=== PATIENT | female | born 1975 | race Caucasian/White ===

== ENCOUNTER 2017-10-03 13:00 | Outpatient (CLI) | payer OTHER | END 2017-10-03 13:02 | disposition home or self-care (01) | LOC: MAMO-SONO 13:00 | DX: N60.29 Fibroadenosis of unspecified breast (principal); Z12.31 Encounter for screening mammogram for malignant neoplasm of breast ==

== ENCOUNTER 2018-12-11 15:57 | Outpatient (CLI) | payer OTHER | END 2018-12-11 16:00 | disposition home or self-care (01) | LOC: LAB 15:57 | DX: E04.1 Nontoxic single thyroid nodule (principal); E78.00 Pure hypercholesterolemia, unspecified; E55.0 Rickets, active; N92.1 Excessive and frequent menstruation with irregular cycle ==

== ENCOUNTER → 2018-12-11 | Outpatient (CLI) | payer OTHER | END | disposition home or self-care (01) | LOC: MAMO-SONO 08:15 | DX: Z12.31 Encounter for screening mammogram for malignant neoplasm of breast (principal) ==

== ENCOUNTER 2019-02-27 09:46 | Outpatient (CLI) | payer OTHER ==
[~2019-02-27] VITALS: Ht 157.5 cm; Wt 69.4 kg
== END 2019-02-27 10:00 | disposition home or self-care (01) ==
LOC: OFIC 805 09:46
DX: J32.8 Other chronic sinusitis (principal); H74.8X3 Other specified disorders of middle ear and mastoid, bilateral; R09.81 Nasal congestion

== ENCOUNTER 2019-03-13 09:42 | Outpatient (CLI) | payer OTHER ==
[~2019-03-13] VITALS: Ht 152.4 cm; Wt 68.5 kg
== END 2019-03-13 10:00 | disposition home or self-care (01) ==
LOC: OFIC 805 09:42
DX: J32.8 Other chronic sinusitis (principal); H74.8X3 Other specified disorders of middle ear and mastoid, bilateral; R09.81 Nasal congestion

== ENCOUNTER 2019-04-30 07:28 | Outpatient (CLI) | payer OTHER | END 2019-04-30 07:39 | disposition home or self-care (01) | LOC: NUCLEAR 07:28 | DX: K80.20 Calculus of gallbladder without cholecystitis without obstruction (principal) | CPT/HCPCS: 78227; A9537 ==

== ENCOUNTER 2019-06-05 04:53 | Day surgery (SDC) | payer OTHER ==
[~2019-06-05 04:53] MED LIST: FOLGARD TABLET1 EACH PO; GLYCOTROL CAPS1 EACH PO
== END 2019-06-05 13:45 | disposition home or self-care (01) ==
LOC: CIR.AMB 04:53
DX: K80.10 Calculus of gallbladder with chronic cholecystitis without obstruction (principal)

== ENCOUNTER 2020-04-09 12:52 | Outpatient (CLI) | payer OTHER | END 2020-04-09 13:00 | disposition home or self-care (01) | LOC: MRI 12:52 | PROVIDERS: ATTEND Physical Medicine & Rehabilitation | DX: M54.5 Low back pain (principal); M54.16 Radiculopathy, lumbar region | CPT/HCPCS: 72148 ==

== ENCOUNTER 2020-07-07 09:41 | Outpatient (CLI) | payer OTHER | END 2020-07-07 09:46 | disposition home or self-care (01) | LOC: MAMO-SONO 09:41 | PROVIDERS: ATTEND Obstetrics & Gynecology | DX: Z12.31 Encounter for screening mammogram for malignant neoplasm of breast (principal); N60.11 Diffuse cystic mastopathy of right breast; N60.12 Diffuse cystic mastopathy of left breast ==

== ENCOUNTER 2023-07-23 13:46 | Outpatient (CLI) | payer OTHER | END 2023-07-23 13:55 | disposition home or self-care (01) | LOC: MAMO-SONO 13:46 | PROVIDERS: ATTEND Obstetrics & Gynecology | DX: Z12.31 Encounter for screening mammogram for malignant neoplasm of breast (principal); N60.11 Diffuse cystic mastopathy of right breast; N60.12 Diffuse cystic mastopathy of left breast ==

== ENCOUNTER 2024-07-29 13:00 | Outpatient (CLI) | payer OTHER | END 2024-07-29 13:08 | disposition home or self-care (01) | LOC: MAMO-SONO 13:00 | PROVIDERS: ATTEND Obstetrics & Gynecology | DX: N60.11 Diffuse cystic mastopathy of right breast (principal); N60.12 Diffuse cystic mastopathy of left breast; Z12.31 Encounter for screening mammogram for malignant neoplasm of breast ==

== ENCOUNTER 2025-03-19 08:01 | Outpatient (CLI) | payer OTHER | END 2025-03-19 08:09 | disposition home or self-care (01) | LOC: RAD 08:01 | PROVIDERS: ATTEND Physical Medicine & Rehabilitation | DX: M54.17 Radiculopathy, lumbosacral region (principal); M25.562 Pain in left knee | CPT/HCPCS: 72148 ==

== ENCOUNTER 2025-08-24 11:24 | Outpatient (CLI) | payer OTHER | END 2025-08-24 11:30 | disposition home or self-care (01) | LOC: MAMO-SONO 11:24 | DX: N60.11 Diffuse cystic mastopathy of right breast (principal); N60.12 Diffuse cystic mastopathy of left breast; Z12.31 Encounter for screening mammogram for malignant neoplasm of breast ==